=== PATIENT | male | born 1950 | race Caucasian/White ===

== ENCOUNTER 2022-01-18 04:58 | Emergency (ER) | payer MEDICARE, SELFPAY ==
[2022-01-18 05:17] VITALS: BP 124/69; PULSE 63; RESP 16; TEMP 36.2; O2SAT 97; BMI 29.1
[2022-01-18 07:58] LABS: Appearance Urine CLEAR; Color Urine YELLOW; Glucose Urine UA NEG (NEG); Leukocyte Esterase Urine NEG (NEG); Nitrite Urine NEG (NEG); PH 5.5 (5.0-8.0); Specific Gravity - Urine >= 1.030 (1.005-1.025); UACC Culture Trigger NO; Urine Blood TRACE (NEG); Urine Ketones 15 MG/DL (NEG); Urine Protein NEG (NEG-TRACE)
[2022-01-18 08:08] LABS: RBC Urine 0-2 /HPF (0); Squamous Epithelial Cell Urine 1+ /LPF
[2022-01-18 08:09] LABS: Mucus Urine TRACE /LPF; WBC Urine 0 /HPF (0-4)
--- NOTE | 2022-01-18 08:42 | ED.MALEGU ---
HPI - Male Genitourinary General Chief complaint: Urogenital-Male Stated complaint: Unable to urinate Time Seen by Provider: 01/18/22 06:31 Source: patient Mode of arrival: ambulatory Limitations: no limitations History of Present Illness HPI Narrative: Patient had been doing well since being on his medications. This past weekend he was not urinating well, in the ED he felt like he was able to urinate. Patient with pelvic pain and having increased difficulty urinating. Stating that he had some lumbar discomfort, but no fever. patient has had recent URI but not taking any antihistamines. Onset (ago): day(s) Duration: constant Severity: mild Relieving factors: urination Associated symptoms: Reports denies other symptoms Related Data Allergies Allergy/AdvReac Type Severity Reaction Status Date / Time No Known Allergies Allergy Verified 01/18/22 05:22 Review of Systems Constitutional: Constitutional: Reports no additional constitutional complaints Eyes: Eyes: Reports no additional eye complaints ENT: Denies dizziness Cardiovascular: Cardiovascular: Reports no additional cardiovascular complaints Respiratory: Respiratory: Reports as per HPI Gastrointestinal: Gastrointestinal: Reports no additional gastrointestinal complaints Musculoskeletal: Musculoskeletal: Reports no additional musculoskeletal complaints Integumentary/Breasts: Skin/Breast: Denies rash Neurologic: Reports system reviewed and no additional complaints, except as documented, Denies dizziness and Denies Sensory deficit (Neuro) Psychiatric: Psychiatric: Denies anxiety [facility] Past Medical History Medical History Enlarged prostate Social History Social History Advance Directives: No Advance Directives Information Provided: No Physical Exam Vital Signs: Vital Signs: Last Vital Signs Temp 97.1 F 01/18/22 05:17 Pulse 63 01/18/22 05:17 Resp 16 01/18/22 05:17 BP 124/69 01/18/22 05:17 Pulse Ox 97 01/18/22 05:17 BMI result Body Mass Index 29.1 Const: General: healthy appearing Nutritional Appearance: average body habitus Orientation/consciousness: oriented to person and patient oriented x3 Limitations: no limitations HEENT: Head: Yes normal to inspection Ears: external ears normal General nose exam: Normal external nose present Mouth: Normal oral and palatal mucosa present and oropharynx normal Throat: Yes posterior oropharynx normal Eyes: General: appearance normal, both eyes and all related structures Neck: Other: supple Neck: Yes normal visual inspection Chest: Chest palpation & inspection: normal inspection of the chest Resp: Auscultation: clear to auscultation bilaterally Cardio: Jugular venous distension: no JVD Rate: regular rate Rhythm: regular rhythm Heart sounds: S1 normal heart sound present and S2 normal heart sound present GI: Inspection: Yes normal to inspection Palpation (GI): Soft to palpation, nontender and No hepatosplenomegaly present Auscultation: normal bowel sounds : General: Yes no CVA tenderness Back/Spine/Pelvis: Back: no CVA tenderness Skin: General skin exam: no rashes or lesions noted Neuro: General: oriented to person and patient oriented x3 Cranial nerves: Yes CN's II-XII intact bilaterally Motor exam (neuro): 5/5 motor strength present throughout Sensory Exam: No Sensory deficit (Neuro) Extrem: General: Yes normal to inspection Psych: Appearance: grossly normal Course Reevaluation(s) Reevaluation #1: Patient with normal UA and post void residual of 236ml. Will have patient follow up with Dr. Gu his urologist Time: 08:57 [facility] - Male Genitourinary Lab Data Labs: Lab Results 01/18/22 Range/Units 07:52 Urine Color YELLOW Urine Appearance CLEAR Urine pH 5.5 (5.0-8.0) Ur Specific [place] >= 1.030 H (1.005-1.025) Urine Protein NEG (NEG-TRACE) MG/DL Urine Glucose (UA) NEG (NEG) MG/DL Urine Ketones 15 (NEG) MG/DL Urine Blood TRACE (NEG) Urine Nitrite NEG (NEG) Ur Leukocyte Esterase NEG (NEG) Urine RBC 0-2 (0) /HPF Urine WBC 0 (0-4) /HPF Ur Squamous Epith Cells 1+ /LPF Urine Bacteria NONE /LPF Urine Mucus TRACE /LPF Discharge Plan Discharge Clinical Impression: Acute on chronic urinary retention Patient Disposition: Home, Self-Care Instructions: Urinary Retention in Men (ED) Additional Instructions: Follow up with Dr. Gu your urologist Referrals: Anthony Frey MD [Primary Care Provider] - 1 week
== END 2022-01-18 09:27 | disposition home or self-care (01) ==
PROVIDERS: Student in an Organized Health Care Education/Training Program; Emergency Provider Emergency Medicine; PCP Family Medicine
DX: R33.9 Retention of urine, unspecified (principal)
CPT/HCPCS: 51798; 81001; 99283; 99284

== ENCOUNTER 2025-03-16 10:20 | Outpatient (AMB) | payer MEDICARE, SELFPAY ==
[2025-03-16 10:23] VITALS: BP 144/90; PULSE 72; TEMP 36.6; O2SAT 97; BMI 29.2
--- NOTE | 2025-03-16 10:23 | MHC.OFFWIV ---
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 Dirt /dust fell into his eye. He flush this out and I felt okay afterwards. He went to bed and awoke with redness and irritation no vision changes. No pain PFSH Medical History Enlarged prostate Review of Systems Eyes Details: see HPI Physical Exam Vital Signs: Last Vital Signs Temp 97.9 F 03/16/25 10:23 Pulse 72 03/16/25 10:23 BP 144/90 H 03/16/25 10:23 Pulse Ox 97 03/16/25 10:23 BMI result Body Mass Index 29.2 Eyes Other: right eye with erythema and chemosis no corneal abrasion, examined with Bio[employer] and Wood's lamp vision is grossly normal Assessment & Plan Assessment & Plan (1) Chemosis of right conjunctiva: Code(s): H11.421 - Conjunctival edema, right eye Plan: conjunctival chemosis without retained foreign body or corneal abrasion eye was flushed this morning will give him a script for a steroid/antibiotic eyedrops he can continue flushing I with natural tears throughout his day call or return to office if any change in vision or concerning symptoms such as pain or increased swelling Medications: New neomycin-polymyxin B-dexameth 3.5mg/mL-10,000 unit/mL-0.1 % 1 drp ophthalmic (eye) Q6H 5 mL 0RF 7 days Coding Level of Care Code Est Pt Level 3 (24516) Diagnoses Chemosis of right conjunctiva H11.421
== END 2025-03-16 11:11 | disposition home or self-care (01) ==
PROVIDERS: PCP Family Medicine; Visit Provider Family Medicine
DX: H11.421 Conjunctival edema, right eye (principal)

== ENCOUNTER → 2025-03-16 10:20 | Outpatient (BNVA) | payer MEDICARE, SELFPAY | PROVIDERS: PCP Family Medicine; Visit Provider Family Medicine | DX: H11.421 Conjunctival edema, right eye (principal) | CPT/HCPCS: 99212 ==